=== PATIENT | female | born 1990 | race Caucasian/White ===

== ENCOUNTER 2022-11-16 11:36 | Outpatient (REF) | payer MEDICAID, SELFPAY ==
[2022-11-16 14:11] LABS: MANUAL DIFF FLAG NO
[2022-11-16 14:21] LABS: Basophils Absolute Auto 0.1 X10*3/uL (0.0-0.2); Basophils Percent Auto 0.6 % (0-2); Eosinophils Absolute Auto 0.1 X10*3/uL (0.0-0.4); Eosinophils Percent Auto 0.7 % (0-4); Hematocrit 38.8 % (37.0-47.0); Hemoglobin 12.4 g/dl (12.0-16.0); Imm Gran Abs Auto 0.03 X10*3/uL (0.00-0.03); Imm Gran Pct Auto 0.4 % (0.0-0.4); Lymphocytes Absolute Auto 1.6 X10*3/uL (1.2-4.9); Mean Corpuscular Hemoglobin 27.5 pg (27.0-33.0); Mean Platelet Volume 11.9 fL (9.4-12.3); Monocytes Absolute Auto 0.5 X10*3/uL (0.1-1.2); Neutrophils Percent Auto 73.3 % (45-73); Platelet Count 322 X10*3/uL (160-400); Red Blood Count 4.51 X10*6/uL (4.20-5.50); Red Cell Distribution Width 13.5 % (11.0-16.0); White Blood Count 8.2 X10*3/uL (4.8-10.8)
[2022-11-16 14:25] LABS: INTERNATIONAL NORM RATIO 0.9 (0.9-1.1); Prothrombin Time 11.1 SEC (11.1-13.3)
[2022-11-16 16:31] LABS: Alanine Aminotransferase 10 U/L (0-31); Albumin Level 4.2 g/dL (3.5-5.0); Alkaline Phosphatase 53 U/L (39-117); Anion Gap 14 (12-20); Aspartate Amino Transferase 15 U/L (5-31); Bilirubin Direct 0.1 mg/dL (0.0-0.5); Bilirubin Total 0.4 mg/dL (0.0-1.0); Calcium 9.4 mg/dL (8.4-10.2); Carbon Dioxide 21 mmol/L (22-29); Chloride 107 mmol/L (96-108); Cholesterol 198 mg/dL; Estimated Glomerular Filt Rate > 60; Glucose Random 86 mg/dL (60-115); HDL Cholesterol 59 mg/dL; LDL Cholesterol Calculated 125 mg/dl; Potassium 4.3 mmol/L (3.3-5.1); Sodium 138 mmol/L (135-145); Total Protein 7.7 g/dL (6.5-8.0); Triglycerides 73 mg/dL
[2022-11-16 16:41] LABS: TSH reflex Free T4 7.49 uIU/mL (0.32-4.0)
[2022-11-16 17:23] LABS: Free T4 (Free Thyroxine) 0.89 ng/dL (0.71-1.85)
[2022-11-16 20:01] LABS: Blood Urea Nitrogen 12 mg/dL (9-16)
== END 2022-11-16 11:37 | disposition home or self-care (01) ==
LOC: HO.CHCLDS 11:36
PROVIDERS: Visit Provider Internal Medicine
DX: Z00.00 Encounter for general adult medical examination without abnormal findings (principal); E66.09 Other obesity due to excess calories; Z68.36 Body mass index [BMI] 36.0-36.9, adult; R23.3 Spontaneous ecchymoses; J45.20 Mild intermittent asthma, uncomplicated
CPT/HCPCS: 36415; 80048; 80061; 80076; 84439; 84443; 85025; 85610

== ENCOUNTER 2023-06-22 11:05 | Outpatient (REF) | payer MEDICAID, SELFPAY ==
--- NOTE | ~2023-06-22 | XR_ITS ---
EXAMINATION: XR CHEST CLINICAL INFORMATION: 5 mm right-sided pulmonary nodule seen on prior imaging. COMPARISON: None available. TECHNIQUE: 2 views of the chest were obtained. FINDINGS: The lungs are well expanded. No focal consolidation. No pleural effusion. Cardiac silhouette is within normal limits. XR/XR chest 2V IMPRESSION: No acute abnormality.
== END 2023-06-22 11:06 | disposition home or self-care (01) ==
LOC: HO.HHCX 11:05
PROVIDERS: Visit Provider Registered Nurse
DX: R91.1 Solitary pulmonary nodule (principal)
CPT/HCPCS: 71046

== ENCOUNTER 2023-07-10 13:07 | Outpatient (AMB) | payer MEDICAID, SELFPAY ==
--- NOTE | 2023-07-10 13:08 | MHC.OFFVIS ---
Intake Vital Signs 07/10/23 13:16 Weight 260 lb BP 129/75 Blood Pressure Location Lt brachial Position Sitting Pulse 97 Intake Visit Reasons: Lung nodule Intake Note: Patient referred by PCP Dr. Coley for Rt lung nodule. Patient seen @ [facility] ED on 06-15-23 (see visit notes). Nodule was an incidental finding after ER work up for neck pain. Patient c/o: SOB, coughing. On nebulizer. [facility] report: CT of head and angiogram of neck on 06-15-23. Cell Maker Required: No Accompanied by: Self / Same As Patient Allergies No Known Allergies Allergy (Unverified 07/10/23 13:13) Medication List - Last Reconciled 07/11/23 by Raúl Britt MD albuterol sulfate 90 mcg/actuation (Ventolin HFA) 2 puffs inhalation Q6H PRN betamethasone valerate 0.1% topical Q12H HPI HPI Comments History of Present Illness Details Patient presents here for an incidental finding of a right upper lobe lung nodule. The was an incidental finding. Patient has no respiratory issues or complaints. Chart was reviewed and patient evaluated. She has never smoked cigarettes. Occasionally marijuana. Weight, appetite, energy within normal limits. She denies any cough, hemoptysis, chest pain, or wheezing. [facility] Medical History (Updated 07/11/23 @ 13:04 by Raúl Britt MD) Enlarged adenoids Asthma Social History (Updated 07/10/23 @ 13:14 by TRUNG Judd) Alcohol intake: never Patient Tobacco Use Status: Never used Tobacco Substance Use Type: Marijuana Physical Exam Vital Signs: Last Vital Signs Pulse 97 07/10/23 13:16 BP 129/75 07/10/23 13:16 HEENT Other: No cervical periclavicular or axillary adenopathy. Chest Other: Chest breath sounds bilaterally. GI Other: Abdomen soft, benign Assessment & Plan Assessment & Plan (1) Incidental lung nodule, less than or equal to 3mm: Code(s): R91.1 - Solitary pulmonary nodule Plan The results from [facility] CT scan were reviewed and my current recommendation is to perform a surveillance CT scan in 1 year's time and direct further therapy based on these results. Patient is very low risk for any neoplastic pathology. All questions answered. Orders: Orders CT chest wo/w IV con 11 Months R91.1 - Solitary pulmonary nodule Coding Level of Care Code New Pt Level 4 (52086) Diagnoses Incidental lung nodule, less than or equal to 3mm R91.1
[2023-07-10 13:16] VITALS: BP 129/75; PULSE 97
== END 2023-07-10 13:35 | disposition home or self-care (01) ==
PROVIDERS: PCP Internal Medicine; Visit Provider Surgery
DX: R91.1 Solitary pulmonary nodule (principal)
CPT/HCPCS: 99204

== ENCOUNTER → 2023-07-10 13:07 | Outpatient (BNVA) | payer MEDICAID, SELFPAY | PROVIDERS: PCP Internal Medicine; Visit Provider Surgery | DX: R91.1 Solitary pulmonary nodule (principal) | CPT/HCPCS: 99202 ==

== ENCOUNTER 2024-04-30 09:34 | Outpatient (REF) | payer MEDICAID, SELFPAY ==
--- NOTE | ~2024-04-30 | CT_ITS ---
EXAMINATION: CT CHEST WITH IV CONTRAST INDICATION: R91.1 - Solitary pulmonary nodule COMPARISON: Correlation is made with PA and lateral views of the chest dated 06/22/2023. TECHNIQUE: Helical CT scan of the chest was performed following administration of intravenous contrast. Coronal and sagittal reformatted images were generated and reviewed. This CT exam was performed with one or more of the following dose reduction techniques: automated exposure control, adjustment of the mA and/or kV according to patient size, use of iterative reconstruction technique. DLP: 150 mGy-cm CHEST: THYROID: The thyroid is unremarkable. LUNGS: There is a 5 mm nodule at the right lung apex (series 6, image 24). The lungs are otherwise clear without evidence of additional nodules or airspace opacities. MEDIASTINUM: There is no mediastinal lymphadenopathy. AARON: There is no hilar lymphadenopathy. CARDIOVASCULATURE: The heart is normal in size. There is no pericardial effusion. The thoracic aorta is normal in caliber. DEGREE OF CORONARY CALCIFICATION: none PLEURA: There is no pleural effusion. No pneumothorax. MAIN AIRWAYS: The mainstem bronchi and proximal branches are patent. AXILLA: There is no axillary lymphadenopathy. BONES AND SOFT TISSUES: Unremarkable UPPER ABDOMEN: The visualized portions of the liver, spleen, and adrenals are unremarkable. CT/CT chest w IV con IMPRESSION: 5 mm right apical lung nodule. Comparison with prior outside studies is recommended. Please see Fleischner Society guidelines below. Fleischner Criteria for pulmonary nodule follow-up SOLID NODULES: Low risk patient: <6mm: no follow-up 6-8mm: 6 month follow-up CT >8mm: PET/Biopsy/ 3 month follow-up CT High risk patient: <6mm: 12 month follow-up CT 6-8mm: 6 month follow-up CT >8mm: PET/Biopsy/ 3 month follow-up CT SUB-SOLID/GROUNDGLASS NODULES: All patients: > or = 6mm: 6 month follow-up CT *Please note that in patients in the following categories, the Fleischner criteria do not apply: Immunocompromised, lung cancer screening population, age below 35, and patients with known malignancy Electronically signed by: David Lima MD 05/02/2024 08:04 AM EST
[2024-04-30] MEDS: iohexoL 350 MG/ML 100 ML INFUS..BTL 65 ML IV (10:49)
== END 2024-04-30 09:35 | disposition home or self-care (01) ==
LOC: HO.CT 09:34
PROVIDERS: PCP Internal Medicine; Visit Provider Surgery
DX: R91.1 Solitary pulmonary nodule (principal)
CPT/HCPCS: 71260; Q9967

== ENCOUNTER → 2024-04-30 09:36 | Outpatient (BNV) | payer MEDICAID, SELFPAY | PROVIDERS: PCP Internal Medicine; Visit Provider Radiology Diagnostic Radiology | DX: R91.1 Solitary pulmonary nodule (principal) | CPT/HCPCS: 71260 ==